=== PATIENT | female | born 1995 | race Caucasian/White ===

== ENCOUNTER → 2017-02-21 | Outpatient (REF) | payer MEDICAID ==
[2017-02-21 15:30] LABS: THYROXINE (T4) 1.6 UG/DL (6.0-11.6)
== END ==
LOC: M LAB REF 14:47
PROVIDERS: ATTEND Nurse Practitioner Adult Health
DX: E03.9 Hypothyroidism, unspecified (principal)

== ENCOUNTER → 2017-04-02 | Outpatient (REF) | payer OTHER, MEDICAID | LOC: M LAB REF 17:19 | DX: E03.9 Hypothyroidism, unspecified (principal) ==

== ENCOUNTER → 2017-06-03 | Outpatient (REF) | payer OTHER, MEDICAID ==
[2017-06-03 20:38] LABS: FREE T4 0.61 NG/DL (0.78-1.33)
== END ==
LOC: M LAB REF 17:39
DX: E03.9 Hypothyroidism, unspecified (principal)
CPT/HCPCS: 84443

== ENCOUNTER → 2017-07-02 | Outpatient (REF) | payer OTHER, MEDICAID | LOC: M LAB REF 17:23 | DX: E03.9 Hypothyroidism, unspecified (principal) ==

== ENCOUNTER → 2017-08-01 | Outpatient (REF) | payer OTHER, MEDICAID | LOC: M LAB REF 11:55 | DX: E03.9 Hypothyroidism, unspecified (principal) ==

== ENCOUNTER → 2017-09-02 | Outpatient (REF) | payer OTHER, MEDICAID | LOC: M LAB REF 12:32 | DX: E03.9 Hypothyroidism, unspecified (principal) ==

== ENCOUNTER → 2017-10-14 | Outpatient (REF) | payer OTHER, MEDICAID | LOC: M LAB REF 17:27 | DX: E03.9 Hypothyroidism, unspecified (principal) ==

== ENCOUNTER → 2017-12-10 | Outpatient (REF) | payer OTHER, MEDICAID | LOC: M LAB REF 18:14 | DX: E03.9 Hypothyroidism, unspecified (principal) ==

== ENCOUNTER → 2017-12-24 | Outpatient (REF) | payer OTHER, MEDICAID ==
[2017-12-24 16:21] LABS: CHLAMYDIA DNA AMPLIFICATION NEGATIVE (NEGATIVE); GC DNA AMPLIFICATION NEGATIVE (NEGATIVE)
[2017-12-25 10:39] LABS: HIV 1&2 SCREEN CENTAUR NEGATIVE (NEGATIVE)
== END ==
LOC: M LAB REF 12:38
DX: Z11.3 Encounter for screening for infections with a predominantly sexual mode of transmission (principal)
CPT/HCPCS: 86780

== ENCOUNTER → 2018-01-23 | Outpatient (REF) | payer OTHER, MEDICAID | LOC: M LAB REF 15:52 | DX: E03.9 Hypothyroidism, unspecified (principal) ==

== ENCOUNTER 2018-03-08 22:03 | Emergency (ER) | payer MEDICAID, OTHER ==
[~2018-03-08] VITALS: Ht 157.5 cm; Wt 68.2 kg
[2018-03-08] MEDS ORDERED: ACETAMINOPHEN 325 MG TAB PO ONE (22:30)
[2018-03-08 23:23] VITALS: BP 135/85
== END 2018-03-08 23:30 | disposition home or self-care (01) ==
LOC: M ED 22:03 → EDBD 22:03 → M ED 23:30
DX: T74.31XA Adult psychological abuse, confirmed, initial encounter (principal); Y92.9 Unspecified place or not applicable; Y93.9 Activity, unspecified

== ENCOUNTER → 2018-04-14 | Outpatient (REF) | payer MEDICAID | LOC: M LAB REF 19:10 | PROVIDERS: ATTEND Nurse Practitioner Adult Health | DX: E03.9 Hypothyroidism, unspecified (principal) ==

== ENCOUNTER → 2018-05-27 | Outpatient (REF) | payer OTHER | LOC: M LAB REF 17:36 | PROVIDERS: ATTEND Nurse Practitioner Adult Health | DX: E03.9 Hypothyroidism, unspecified (principal) ==

== ENCOUNTER → 2018-06-30 | Outpatient (REF) | payer OTHER | LOC: M LAB REF 17:42 | PROVIDERS: ATTEND Nurse Practitioner Adult Health | DX: E03.9 Hypothyroidism, unspecified (principal) ==

== ENCOUNTER → 2018-08-11 | Outpatient (REF) | payer OTHER, MEDICAID ==
[2018-08-11 17:41] LABS: HEMOGLOBIN A1c 5.4 %
== END ==
LOC: M LAB REF 15:57
PROVIDERS: ATTEND Nurse Practitioner Adult Health
DX: B37.2 Candidiasis of skin and nail (principal)

== ENCOUNTER → 2020-04-14 | Outpatient (REF) | payer OTHER, MEDICAID ==
[2020-04-15 11:56] LABS: CHLAMYDIA DNA AMPLIFICATION NEGATIVE (NEGATIVE); GC DNA AMPLIFICATION NEGATIVE (NEGATIVE)
== END ==
LOC: M SFHCWAGY 09:56
PROVIDERS: ATTEND Nurse Practitioner Family
DX: Z12.4 Encounter for screening for malignant neoplasm of cervix (principal); Z01.419 Encounter for gynecological examination (general) (routine) without abnormal findings; Z11.3 Encounter for screening for infections with a predominantly sexual mode of transmission

== ENCOUNTER → 2020-05-26 | Outpatient (REF) | payer OTHER, MEDICAID ==
[2020-05-26 18:41] LABS: ALBUMIN 4.4 GM/DL (3.2-5.2); ALT/SGPT 32 U/L (12-78); BILIRUBIN,TOTAL 0.2 MG/DL (0.2-1.0); BLOOD UREA NITROGEN 9 MG/DL (7-18); CALCIUM LEVEL 9.4 MG/DL (8.5-10.1); CARBON DIOXIDE LEVEL 29 MEQ/L (21-32); CHLORIDE LEVEL 105 MEQ/L (98-107); CREATININE FOR GFR 0.62 MG/DL (0.55-1.30); FREE T4 0.49 NG/DL (0.76-1.46); GLOMERULAR FILTRATION RATE > 60.0 (>60); GLUCOSE, FASTING 79 MG/DL (70-100); POTASSIUM SERUM 4.4 MEQ/L (3.5-5.1); SODIUM LEVEL 138 MEQ/L (136-145); TOTAL PROTEIN 7.7 GM/DL (6.4-8.2)
== END ==
LOC: M LAB REF 16:31
PROVIDERS: ATTEND Physician Assistant
DX: E03.9 Hypothyroidism, unspecified (principal)